=== PATIENT | male | born 1985 | race Caucasian/White ===

== ENCOUNTER 2021-01-12 15:19 | Inpatient (IN) | payer OTHER ==
[~2021-01-12] VITALS: Ht 177.8 cm; Wt 89.5 kg
[2021-01-12] MEDS ORDERED: ONDANSETRON HCL INJ 2MG/ML 2ML 2 MG/ML VIAL IV STA (15:27)
[2021-01-12] MEDS ORDERED: KETOROLAC TROMETHAMINE 30 MG/ML VIAL IV STA (15:27)
[2021-01-12] MEDS ORDERED: SODIUM CHLORIDE 0.9% 1000ML 1,000 ML IV STA (15:27)
[2021-01-12 16:02] LABS: BASOPHILS # (AUTO) 0.1 (0.0-0.1); BASOPHILS % 0.4 % (0.0-1.0); EOSINOPHILS # (AUTO) 0.1 (0.0-0.4); EOSINOPHILS % 0.4 % (0.0-6.0); HEMATOCRIT 45.3 % (38.2-49.6); LYMPHOCYTES # (AUTO) 1.8 (1.0-3.2); LYMPHOCYTES % 12.7 % (18.0-39.1); MEAN CORPUSCULAR HEMOGLOBIN 31.8 pg (28-32); MEAN CORPUSCULAR HGB CONC 35.3 g/dL (31-35); MEAN CORPUSCULAR VOLUME 90.1 fL (81-99); MONOCYTES % 7.1 % (4.4-11.3); NEUTROPHILS % 78.9 % (38.7-80.0); PLATELET COUNT 281 x10e3/uL (140-360); RED BLOOD COUNT 5.03 x10e6/uL (4.3-5.7); RED CELL DISTRIBUTION WIDTH 12.3 % (11.7-14.4)
[2021-01-12 16:16] LABS: ALANINE AMINOTRANSFERASE 51 IU/L (0-55); ALBUMIN 4.9 g/dL (3.5-5.0); ALBUMIN/GLOBULIN RATIO 1.4 (0.8-2.0); ALKALINE PHOSPHATASE 58 IU/L (40-150); ANION GAP 17.8 mmol/L (8-16); BLOOD UREA NITROGEN 13 mg/dL (7-26); BUN/CREATININE RATIO 11 (6-25); CALCIUM 9.6 mg/dL (8.4-10.2); CARBON DIOXIDE 26 mmol/L (22-29); CHLORIDE 101 mmol/L (98-107); CREATINE KINASE 89 IU/L (30-200); EST GLOMERULAR FILTRATION RATE > 60 ML/MIN (60-); GLUCOSE 140 mg/dL (74-118); POTASSIUM 3.8 mmol/L (3.5-5.1); SODIUM 141 mmol/L (136-145)
[2021-01-12 16:45] LABS: CLARITY,URINE CLEAR (CLEAR); COLOR,URINE AMBER (YELLOW); KETONES,URINE 2+ (NEGATIVE); LEUKOCYTE ESTERASE ,URINE NEGATIVE (NEGATIVE); NITRITE,URINE NEGATIVE (NEGATIVE); PROTEIN,URINE DIPSTICK 2+ (NEGATIVE)
[2021-01-12 16:46] LABS: URINE UROBILINOGEN 1 mg/dL (0.2 - 1)
[2021-01-12] MEDS ORDERED: SODIUM CHLORIDE 0.9% 50ML 50 ML ONE (16:46)
[2021-01-12] MEDS ORDERED: IOPAMIDOL 370 MG/ML 200 ML INFUS..BTL INJ ONE (16:46)
[2021-01-12 16:49] LABS: AMPHETAMINES SCREEN,URINE NEGATIVE (NEGATIVE); PHENCYCLIDINE SCREEN,URINE NEGATIVE (NEGATIVE)
[2021-01-12 16:50] LABS: BENZODIAZEPINES SCREEN,URINE NEGATIVE (NEGATIVE)
[2021-01-12 16:59] LABS: RBC,URINE 0-5 /HPF (0-5); WBC,URINE (MAN) 0-5 /HPF (0-5)
[2021-01-12 17:00] LABS: BACTERIA,URINE MANY /HPF
[2021-01-12] MEDS ORDERED: PIPERACILLIN/TAZO 4.5 GM 100 ML IV STA (17:28)
[2021-01-12] MEDS ORDERED: LACTATED RINGER'S 1,000 ML INJ ONE (17:30)
[2021-01-12] MEDS: MORPHINE SULFATE INJ 4 MG/ML INJ 1ML IV PRN ×2 (18:16→22:26)
[2021-01-12] MEDS: LACTATED RINGER'S 1,000 ML INJ SCH (19:16)
[2021-01-12] MEDS: ONDANSETRON HCL INJ 2MG/ML 2ML 2 MG/ML VIAL IV PRN (19:57)
[2021-01-12 20:28] VITALS: BP 142/98
[2021-01-12] MEDS: SODIUM CHLORIDE 0.9% 250ML IRRIG IR SCH (21:08)
[2021-01-12 21:17] VITALS: BP 142/98
[2021-01-12 21:21] VITALS: BP 142/98
[2021-01-13] VITALS (8 sets, daily range): BP systolic 127–144; BP diastolic 86–94
[2021-01-13] MEDS: SODIUM CHLORIDE 0.9% 250ML IRRIG IR SCH ×6 (00:15→20:36)
[2021-01-13] MEDS: LACTATED RINGER'S 1,000 ML INJ SCH ×3 (03:34→19:02)
[2021-01-13] MEDS: MORPHINE SULFATE INJ 4 MG/ML INJ 1ML IV PRN ×3 (04:29→20:05)
[2021-01-13] MEDS: ONDANSETRON HCL INJ 2MG/ML 2ML 2 MG/ML VIAL IV PRN ×4 (04:29→20:05)
[2021-01-13 05:13] LABS: BASOPHILS % 0.2 % (0.0-1.0); EOSINOPHILS # (AUTO) 0.1 (0.0-0.4); HEMATOCRIT 39.4 % (38.2-49.6); HEMOGLOBIN 13.6 g/dL (14.0-18.0); LYMPHOCYTES # (AUTO) 1.3 (1.0-3.2); MEAN CORPUSCULAR HEMOGLOBIN 31.8 pg (28-32); MEAN CORPUSCULAR HGB CONC 34.5 g/dL (31-35); MEAN CORPUSCULAR VOLUME 92.1 fL (81-99); MONOCYTES # (AUTO) 0.9 (0.2-0.8); MONOCYTES % 8.3 % (4.4-11.3); NEUTROPHILS # (AUTO) 7.9 (2.1-6.9); NEUTROPHILS % 77.2 % (38.7-80.0); PLATELET COUNT 217 x10e3/uL (140-360); RED BLOOD COUNT 4.28 x10e6/uL (4.3-5.7); RED CELL DISTRIBUTION WIDTH 12.3 % (11.7-14.4)
[2021-01-13 05:32] LABS: ANION GAP 11.6 mmol/L (8-16); BLOOD UREA NITROGEN 12 mg/dL (7-26); BUN/CREATININE RATIO 13 (6-25); CALCIUM 8.4 mg/dL (8.4-10.2); CARBON DIOXIDE 26 mmol/L (22-29); CHLORIDE 106 mmol/L (98-107); CREATININE, SERUM 0.93 mg/dL (0.72-1.25); EST GLOMERULAR FILTRATION RATE > 60 ML/MIN (60-); GLUCOSE 108 mg/dL (74-118); POTASSIUM 3.6 mmol/L (3.5-5.1); SODIUM 140 mmol/L (136-145)
[2021-01-13] MEDS ORDERED: KETOROLAC TROMETHAMINE 60 MG/2 ML VIAL IV ONE (09:00)
[2021-01-13] MEDS: PIPERACILLIN/TAZOBAC 3.375 GM in SODIUM CHLORIDE 0.9% 50ML 50 ML IV SCH ×2 (12:38→18:11)
[2021-01-14] VITALS (9 sets, daily range): BP systolic 123–147; BP diastolic 86–104
[2021-01-14] MEDS: PIPERACILLIN/TAZOBAC 3.375 GM in SODIUM CHLORIDE 0.9% 50ML 50 ML IV SCH ×5 (00:01→23:29)
[2021-01-14] MEDS: ONDANSETRON HCL INJ 2MG/ML 2ML 2 MG/ML VIAL IV PRN ×3 (00:11→13:10)
[2021-01-14] MEDS: SODIUM CHLORIDE 0.9% 250ML IRRIG IR SCH ×7 (00:11→23:29)
[2021-01-14] MEDS: MORPHINE SULFATE INJ 4 MG/ML INJ 1ML IV PRN ×3 (00:11→13:10)
[2021-01-14] MEDS: LACTATED RINGER'S 1,000 ML INJ SCH ×3 (02:43→20:05)
[2021-01-14 05:36] LABS: BASOPHILS # (AUTO) 0.1 (0.0-0.1); BASOPHILS % 0.6 % (0.0-1.0); EOSINOPHILS # (AUTO) 0.3 (0.0-0.4); HEMATOCRIT 38.2 % (38.2-49.6); LYMPHOCYTES # (AUTO) 1.7 (1.0-3.2); LYMPHOCYTES % 20.5 % (18.0-39.1); MEAN CORPUSCULAR HEMOGLOBIN 31.3 pg (28-32); MEAN CORPUSCULAR VOLUME 91.8 fL (81-99); MONOCYTES # (AUTO) 0.8 (0.2-0.8); MONOCYTES % 9.3 % (4.4-11.3); NEUTROPHILS # (AUTO) 5.5 (2.1-6.9); NEUTROPHILS % 66.2 % (38.7-80.0); PLATELET COUNT 196 x10e3/uL (140-360); RED BLOOD COUNT 4.16 x10e6/uL (4.3-5.7); RED CELL DISTRIBUTION WIDTH 12.1 % (11.7-14.4)
[2021-01-14 06:04] LABS: ANION GAP 11.7 mmol/L (8-16); BLOOD UREA NITROGEN 13 mg/dL (7-26); BUN/CREATININE RATIO 12 (6-25); CALCIUM 8.6 mg/dL (8.4-10.2); CARBON DIOXIDE 31 mmol/L (22-29); CHLORIDE 103 mmol/L (98-107); CREATININE, SERUM 1.11 mg/dL (0.72-1.25); EST GLOMERULAR FILTRATION RATE > 60 ML/MIN (60-); GLUCOSE 86 mg/dL (74-118); POTASSIUM 3.7 mmol/L (3.5-5.1); SODIUM 142 mmol/L (136-145)
[2021-01-14] MEDS ORDERED: BISACODYL 10 MG SUPP PR ONE (10:15)
[2021-01-14] MEDS: KETOROLAC TROMETHAMINE 30 MG/ML VIAL IV PRN (15:54)
[2021-01-14] MEDS: PANTOPRAZOLE 40 MG 10ML VIAL IV SCH (17:04)
[2021-01-15] VITALS (7 sets, daily range): BP systolic 111–138; BP diastolic 57–101
[2021-01-15] MEDS: LACTATED RINGER'S 1,000 ML INJ SCH ×4 (03:06→22:33)
[2021-01-15] MEDS: SODIUM CHLORIDE 0.9% 250ML IRRIG IR SCH ×5 (05:00→19:45)
[2021-01-15] MEDS: PIPERACILLIN/TAZOBAC 3.375 GM in SODIUM CHLORIDE 0.9% 50ML 50 ML IV SCH ×3 (06:00→18:00)
[2021-01-15] MEDS: PANTOPRAZOLE 40 MG 10ML VIAL IV SCH ×2 (08:13→21:22)
[2021-01-15] MEDS: KETOROLAC TROMETHAMINE 30 MG/ML VIAL IV PRN ×2 (10:30→17:40)
[2021-01-15] MEDS ORDERED: BISACODYL 10 MG SUPP PR NR ×2 (12:30→21:00)
[2021-01-15] MEDS: CEPACOL SORE THROAT LOZENGES PO PRN ×2 (13:00→17:40)
[2021-01-15] MEDS ORDERED: METOCLOPRAMIDE HCL 10 MG/2ML VIAL IV SCH (18:00)
[2021-01-15] MEDS: ONDANSETRON HCL INJ 2MG/ML 2ML 2 MG/ML VIAL IV PRN (19:40)
[2021-01-15] MEDS: MORPHINE SULFATE INJ 4 MG/ML INJ 1ML IV PRN (19:40)
[2021-01-15] MEDS ORDERED: BISACODYL 10 MG SUPP PR ONE (21:00)
[2021-01-16] VITALS (8 sets, daily range): BP systolic 118–133; BP diastolic 78–91
[2021-01-16] MEDS: PIPERACILLIN/TAZOBAC 3.375 GM in SODIUM CHLORIDE 0.9% 50ML 50 ML IV SCH ×5 (00:18→23:44)
[2021-01-16] MEDS: SODIUM CHLORIDE 0.9% 250ML IRRIG IR SCH ×3 (00:18→09:00)
[2021-01-16] MEDS: LACTATED RINGER'S 1,000 ML INJ SCH ×2 (05:59→16:39)
[2021-01-16] MEDS: PANTOPRAZOLE 40 MG 10ML VIAL IV SCH ×2 (09:00→21:16)
[2021-01-16] MEDS ORDERED: BISACODYL 10 MG SUPP PR ONE (09:00)
[2021-01-16] MEDS: ONDANSETRON HCL INJ 2MG/ML 2ML 2 MG/ML VIAL IV PRN (15:22)
[2021-01-16] MEDS: MORPHINE SULFATE INJ 4 MG/ML INJ 1ML IV PRN (15:22)
[2021-01-17] VITALS: BP 137/96
[2021-01-17] MEDS: MORPHINE SULFATE INJ 4 MG/ML INJ 1ML IV PRN (02:50)
[2021-01-17 04:00] VITALS: BP 128/92
[2021-01-17] MEDS: PIPERACILLIN/TAZOBAC 3.375 GM in SODIUM CHLORIDE 0.9% 50ML 50 ML IV SCH ×2 (06:02→11:04)
[2021-01-17] MEDS: PANTOPRAZOLE 40 MG 10ML VIAL IV SCH (08:10)
[2021-01-17 08:32] VITALS: BP 128/92
[2021-01-17] MEDS: KETOROLAC TROMETHAMINE 30 MG/ML VIAL IV PRN (11:04)
[2021-01-17 11:54] VITALS: BP 125/96
== END 2021-01-17 12:17 | disposition home or self-care (01) | DRG 390 ==
LOC: ER 15:54 → ERHOLD 18:39 → MED/SURG 20:37
PROVIDERS: ADMIT Surgery; ATTEND Surgery
DX: K56.609 Unspecified intestinal obstruction, unspecified as to partial versus complete obstruction (principal); Z20.822 Contact with and (suspected) exposure to COVID-19
CPT/HCPCS: 36415; 74018; 74022; 74177; 76705; 80048; 80053; 80307; 81001; 82550; 82553; 82948; 83605; 83690; 84484; 85025; 87040; 99284; J1885; J2270; J2405; J2543; J2765; J7030; J7121; Q9967; U0002